=== PATIENT | male | born 1980 | race American Indian/Alaskan Native ===

== ENCOUNTER 2016-11-05 11:40 | Emergency (ER) | payer OTHER ==
[2016-11-05 11:56] VITALS: BP 132/83; PULSE 84; RESP 16; TEMP 98; O2SAT 97
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
--- NOTE | 2016-11-05 13:19 | RAD ---
PROCEDURE: Cervical Spine Radiographs. HISTORY: Pain. COMPARISON: None. FINDINGS: BONES: Alignment maintained. No fracture. Dens Intact. DISC SPACES: Normal. SOFT TISSUES: Normal. No prevertebral soft tissue swelling. OTHER FINDINGS: None. IMPRESSION: Normal cervical spine radiographs
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
== END 2016-11-05 13:41 | disposition home or self-care (01) ==
LOC: ED 11:40
DX: S16.1XXA Strain of muscle, fascia and tendon at neck level, initial encounter (principal); S40.012A Contusion of left shoulder, initial encounter; V43.02XA Car driver injured in collision with other type car in nontraffic accident, initial encounter; Y92.488 Other paved roadways as the place of occurrence of the external cause

== ENCOUNTER 2016-11-22 16:19 | Emergency (ER) | payer OTHER ==
[2016-11-22 16:29] VITALS: BMI 28.8
[2016-11-22 16:30] VITALS: RESP 18; TEMP 98.7; O2SAT 98
[2016-11-22] MEDS ORDERED: Sodium Chloride 0.9% 1,000 ML IV STA (17:00)
[2016-11-22] MEDS ORDERED: DiphenhydrAMINE 50 mg/ml Inj IVP STA (17:02)
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
[2016-11-22 17:37] LABS: BASO # 0.02 K/mm3 (0.0-2.0); BASO % 0.3 % (0.0-3.0); EOS # 0.1 (0.0-0.7); GRAN # 3.9 (1.4-6.5); GRAN % 58.5 % (50.0-68.0); HEMATOCRIT 45.1 % (42.0-52.0); LYMPH # 2.2 (1.2-3.4); LYMPH % 32.3 % (22.0-35.0); MEAN CELL VOLUME 85.9 fl (80.0-105.0); MEAN CORPUSCULAR HEMOGLOBIN 31.6 pg (25.0-35.0); MEAN CORPUSCULAR HGB CONC 36.8 g/dl (31.0-37.0); MEAN PLATELET VOLUME 9.1 fl (7.0-11.0); MONO # 0.5 (0.1-0.6); MONO % 7.9 % (1.0-6.0); WHITE BLOOD COUNT 6.7 10^3/ul (4.5-11.0)
[2016-11-22 17:37] LABS: URINE BILIRUBIN NEGATIVE (NEGATIVE); URINE BLOOD NEGATIVE (NEGATIVE); URINE GLUCOSE (UA) NEGATIVE (NEGATIVE); URINE KETONE NEGATIVE (NEGATIVE); URINE LEUKOCYTE ESTERASE NEGATIVE Leu/uL (NEGATIVE); URINE PROTEIN NEGATIVE mg/dL (<30 mg/dL); URINE UROBILINOGEN 0.2 E.U./dL (<1 E.U./dL)
[2016-11-22 17:39] LABS: URINE APPEARANCE CLEAR (CLEAR); URINE COLOR YELLOW (YELLOW)
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
[2016-11-22 17:48] LABS: ALB/GLOB RATIO 1.8 (1.1-1.8); ALKALINE PHOSPHATASE 74 U/L (38-133); ALT/SGPT 37 U/L (7-56); AST/SGOT 27 U/L (15-59); BILIRUBIN,TOTAL 0.3 mg/dL (0.2-1.3); BLOOD UREA NITROGEN 13 mg/dL (7-21); CALCIUM 9.5 mg/dL (8.4-10.5); CARBON DIOXIDE 26 mmol/L (21-33); CHLORIDE 104 mmol/L (98-107); GFR AFRICAN-AMERICAN > 60; GLUCOSE,RANDOM 100 mg/dL (70-110); POTASSIUM 4.3 mmol/L (3.6-5.0); SODIUM 141 mmol/L (132-148); TOTAL PROTEIN 7.2 g/dL (5.8-8.3)
[2016-11-22 17:57] VITALS: BP 155/96; PULSE 89
== END 2016-11-22 18:18 | disposition home or self-care (01) ==
LOC: ED 16:19
DX: R51 Headache (principal)
CPT/HCPCS: 70450; 80053; 81003; 85025; 96361; 96374; 96375; 99285; J1200; J2765; J7040